=== PATIENT | male | born 1940 | race Caucasian/White ===

== ENCOUNTER → 2018-08-22 | Outpatient (CLI) | payer MEDICARE, OTHER ==
[~2018-08-22] MED LIST: ASPI81CH PO; CEPH500 PO; FINA5 PO; Flomax0.4 MG PO; NEBI5 PO
== END | disposition home or self-care (01) ==
LOC: PLD 12:23 → LAB SHORT 12:23
DX: C44.321 Squamous cell carcinoma of skin of nose (principal)
CPT/HCPCS: 88305

== ENCOUNTER → 2019-08-29 | Outpatient (CLI) | payer MEDICARE, OTHER | END | disposition home or self-care (01) | LOC: PLD 15:23 → LAB SHORT 15:23 | DX: D04.62 Carcinoma in situ of skin of left upper limb, including shoulder (principal) | CPT/HCPCS: 88305 ==

== ENCOUNTER → 2020-06-27 | Outpatient (CLI) | payer MEDICARE, OTHER | LOC: LAB SHORT 11:18 → PLD 11:18 | DX: C44.329 Squamous cell carcinoma of skin of other parts of face (principal); C44.319 Basal cell carcinoma of skin of other parts of face | CPT/HCPCS: 88305 ==

== ENCOUNTER → 2020-07-30 | Outpatient (CLI) | payer MEDICARE, OTHER, BC | END | disposition home or self-care (01) | LOC: LAB SHORT 14:42 → PLD 14:42 | DX: L57.0 Actinic keratosis (principal) | CPT/HCPCS: 88305 ==

== ENCOUNTER 2025-01-17 04:38 | Inpatient (IN) | payer MEDICARE, OTHER ==
[~2025-01-17] VITALS: Ht 185.4 cm; Wt 95.4 kg
[2025-01-17 04:56] LABS: BASOPHILS ABSOLUTE AUTO 0.03 K/mm3 (0.00-0.23); BASOPHILS PERCENT AUTO 0 % (0-2); EOSINOPHILS ABSOLUTE AUTO 0.03 K/mm3 (0.00-0.68); EOSINOPHILS PERCENT AUTO 0 % (0-6); Hematocrit 36.7 % (37.0-53.0); Hemoglobin 11.7 g/dL (13.5-17.5); IMMATURE GRAN ABSOLUTE AUTO 0.05 K/mm3 (0.00-0.10); IMMATURE GRAN PERCENT AUTO 1 % (0-1); LYMPHOCYTES ABSOLUTE AUTO 1.14 K/mm3 (0.84-5.20); LYMPHOCYTES PERCENT AUTO 10 % (21-46); MONOCYTES ABSOLUTE AUTO 1.10 K/mm3 (0.16-1.47); MONOCYTES PERCENT AUTO 10 % (4-13); Mean Corpuscular HGB Conc 31.9 g/dL (31.5-36.5); Mean Corpuscular Volume 101 fL (80-100); NEUTROPHILS ABSOLUTE AUTO 8.68 K/mm3 (1.96-9.15); NEUTROPHILS PERCENT AUTO 79 % (41-73); NRBC ABSOLUTE 0.00 K/mm3 (0.00-0.02); NRBC Auto 0.0 /100 WBC (0.0-0.2); Platelet Count 121 K/mm3 (150-400); RDW Coefficient Variation 14.1 % (11.7-14.2); RDW Standard Deviation 52.6 fL (35.1-46.3)
[2025-01-17 05:15] LABS: Anion Gap 9.0 mmol/L (3-11); Blood Urea Nitrogen 38.0 mg/dL (8-24); CO2, Blood 20.0 mmol/L (21-32); Calcium, Blood 7.7 mg/dL (8.5-10.1); Chloride, Blood 114.0 mmol/L (98-108); Creatinine, Blood 1.82 mg/dL (0.60-1.20); Glucose, Blood 118.0 mg/dL (70-99); Potassium, Blood 4.2 mmol/L (3.5-5.5); Sodium, Blood 139.0 mmol/L (136-145)
[2025-01-17] MEDS ORDERED: Ondansetron HCl 2 MG / ML 2ML Vial IV PRN (06:10)
[2025-01-17] MEDS ORDERED: Polyethylene Glycol 3350 17 gm PO PRN (06:35)
[2025-01-17 08:26] VITALS: BP 107/68
--- NOTE | 2025-01-17 09:07 | NUR ---
ADMISSION: PT ARRIVED TO PCU 18 @0823 VIA GURNEY. PT ALERT AND ORIENTED X3 ON ARRIVAL, EXTREMELY LITTLE TRAVERSE. STRENGTH WEAK, EQUAL BILATERALLY. DENIES NUMBNESS/TINGLING THROUGHOUT. BP STABLE. HR SR 80'S. AFEBRILE. SPO2 >98% ON ROOM AIR. LUNG SOUNDS DIM IN BASES. PULSES PALPABLE THROUGHOUT. ABD SOFT, NON TENDER, BOWEL SOUNDS +. LAST BM 01/16/25 PER PT SON. SON AT BEDSIDE, ABLE TO ASSIST WITH HEALTH HISTORY AND MED REC. PT ADMITTED FOR R. HIP FX, SURG SCHEDULED FOR 1400. NPO AT THIS TIME. PT AND SON ORIENTED TO ROOM AND CALL LIGHT SYSTEM, BED IN LOW, CALL LIGHT IN REACH.
[2025-01-17 11:06] VITALS: BP 93/54
--- NOTE | 2025-01-17 14:10 | NUR ---
UPDATE: SURGEON AT BEDSIDE. CONSENT OBTAINED. VITAL SIGNS REMAIN STABLE. PT NOW SURGICAL STATUS. SON REMAINS AT BEDSIDE.
--- NOTE | 2025-01-17 14:27 | NUR ---
UPDATE: PT TO DAY SURG.
[2025-01-17 14:30] VITALS: BP 117/71
--- NOTE | 2025-01-17 14:39 | NUR ---
History, Chart, Medications and Allergies reviewed before start of procedure. Pre-Op teaching done. Pt verbalizes understanding. Patient confirms NPO status and agrees with scheduled surgery. PLAN TO LEAVE BILATERAL HEARING AIDS IN UNTIL PT GETS BACK TO OR. WILL PLAN TO SEND LABELED SPECIMEN CUP BACK WITH RIGGER THIRD FOR HEARING AIDS.
[2025-01-17] MEDS ORDERED: Tranexamic Acid 100 ML IV SCH (14:50)
[2025-01-17] MEDS ORDERED: CeFAZolin Sodium 2,000 MG in NS 100 ML IV SCH (14:50)
--- NOTE | 2025-01-17 14:55 | NUR ---
UPDATE: PT WILL RETURN TO SURGICAL ROOM 214. SONNADIR UPDATED AND NOTIFIED OF ROOM CHANGE. REPORT GIVEN TO WAGNER LAKHANI.
--- NOTE | 2025-01-17 15:15 | NUR ---
PROCEDURE IS CANCELLED D/T NEEDING UPDATED ECHO. WILL PLAN TO COMPLETE ECHO AND PROCEED WITH SURGERY TOMORROW.
--- NOTE | 2025-01-17 17:11 | NUR ---
ECHO WAS OBTAINED BEDSIDE IN PREOP. UPON COMPLETION, PLAN REMAINS TO PROCEED WITH SURGERY TOMORROW AM. PT TRANSFERRED TO SURGICAL FLOOR ROOM 214. REPORT GIVEN TO JAKUB MARTINEZ RN TO ASSUME CARE OF PT.
[2025-01-17 17:16] VITALS: BP 125/64
--- NOTE | 2025-01-17 17:25 | NUR ---
PATIENT ARRIVES TO ROOM 214 @1720 PATIENT FROM [facility] HE DID NOT HAVE SURGERY THIS EVENING, ECHO WAS DONE IN DAYSURGERY AND PATIENT IS SCHEDULED TO BE ADDED ON TO OR SCHEDULE TOMORROW. PATIENT R LEG IS SWOLLEN AND INTERNALLY ROTATED AND L R ANKLE IS SWOLLEN WITH +2 EDEMA. PEDAL PULSES ARE +2. LUNG SOUNDS ARE DIM. PATIENT HAS HEARING AIDES AND IS [place]. PATIENT FAMILY MEMBER IN ROOM TO ANSWER QUESTIONS. CALL LIGHT IN REACH, PATIENT ABLE TO MAKE NEEDS KNOWN.
[2025-01-17 20:36] VITALS: BP 102/60
[2025-01-18] VITALS (15 sets, daily range): BP systolic 96–214; BP diastolic 51–177
--- NOTE | 2025-01-18 04:00 | NUR ---
SHIFT SUMMARY NO ACUTE CHANGES TONIGHT. PT ABLE TO MAKE NEEDS KNOWN. IS VERY [place]. RIGHT LEG/HIP PAIN MANAGED WITH PO MEDICATION AND REPOSITIONING. ON BED REST R/T FX. USING URINAL WITH ASSISTANCE. IS NPO WITH IVF INFUSING PER ORDER. PRE SURGICAL SCRUB COMPLETE. AWAITING POTENTIAL SURGERY TODAY.
[2025-01-18 05:08] LABS: BASOPHILS ABSOLUTE AUTO 0.03 K/mm3 (0.00-0.23); BASOPHILS PERCENT AUTO 0 % (0-2); EOSINOPHILS ABSOLUTE AUTO 0.14 K/mm3 (0.00-0.68); EOSINOPHILS PERCENT AUTO 2 % (0-6); Hematocrit 33.8 % (37.0-53.0); Hemoglobin 10.8 g/dL (13.5-17.5); IMMATURE GRAN ABSOLUTE AUTO 0.03 K/mm3 (0.00-0.10); IMMATURE GRAN PERCENT AUTO 0 % (0-1); LYMPHOCYTES ABSOLUTE AUTO 1.31 K/mm3 (0.84-5.20); LYMPHOCYTES PERCENT AUTO 18 % (21-46); MONOCYTES ABSOLUTE AUTO 0.89 K/mm3 (0.16-1.47); MONOCYTES PERCENT AUTO 12 % (4-13); Mean Corpuscular HGB Conc 32.0 g/dL (31.5-36.5); Mean Corpuscular Volume 102 fL (80-100); NEUTROPHILS ABSOLUTE AUTO 5.09 K/mm3 (1.96-9.15); NEUTROPHILS PERCENT AUTO 68 % (41-73); NRBC ABSOLUTE 0.00 K/mm3 (0.00-0.02); NRBC Auto 0.0 /100 WBC (0.0-0.2); Platelet Count 129 K/mm3 (150-400); RDW Coefficient Variation 14.5 % (11.7-14.2); RDW Standard Deviation 54.2 fL (35.1-46.3)
[2025-01-18 05:32] LABS: Alanine Aminotransfer (ALT/SGP 16.0 U/L (12-78); Albumin, Blood 2.5 g/dL (3.4-5.0); Albumin/Globulin Ratio 0.7 (0.8-1.8); Anion Gap 8.0 mmol/L (3-11); Aspartate Aminotrans (AST/SGOT 38.0 U/L (12-37); Bilirubin, Total 1.2 mg/dL (0.1-1.0); Blood Urea Nitrogen 47.0 mg/dL (8-24); CO2, Blood 24.0 mmol/L (21-32); Calcium, Blood 8.1 mg/dL (8.5-10.1); Chloride, Blood 111.0 mmol/L (98-108); Creatinine, Blood 2.29 mg/dL (0.60-1.20); Globulin, Blood 3.6 g/dL (2.2-4.0); Glucose, Blood 110.0 mg/dL (70-99); Magnesium, Blood 1.9 mg/dL (1.6-2.4); Potassium, Blood 4.6 mmol/L (3.5-5.5); Sodium, Blood 138.0 mmol/L (136-145); Total Protein, Blood 6.1 g/dL (6.4-8.2)
[2025-01-18] MEDS ORDERED: NS 1,000 ML IV SCH (07:00)
[2025-01-18] MEDS ORDERED: Amiodarone HCl 50 MG / ML 3 ML Amp IV ONE ×2 (15:50→16:17)
[2025-01-18] MEDS ORDERED: Rocuronium Bromide 10 MG/ML 5ML Injection IV ONE (15:54)
--- NOTE | 2025-01-18 16:18 | NUR ---
"Spiritual Care | Rapid Response | Family Support Pt. is being cared for by the medical staff. During transfer to PCU this mapping specialist sought to be available to the Pts. son who was at bedside during the Rapid. Son was unsettled about why plans for the Pt. didn't happen the previous day. Listen with empathy and interest and sought to normalize the Pts. experience. Son verbalized gratitude for the brief visit."
--- NOTE | 2025-01-18 16:39 | NUR ---
PT WAS A RAPID RESPONSE ON SURGICAL FLOOR ROOM 214 WITH SUSTAINED VTACH PT TRANSFERED VIA BED, AMIO BOLUS WAS GIVEN DURING THE RAPID RESPONSE. AN AMIO GTT WAS STARTED SOON AT THE PT ARRIVED TO PCU 10. BP STABLE. PT IS ON 4L NC W/ SP02 >95%. BL ON RA. THE PT'S SON IS AT BEDSIDE AND STATED BEFORE THE RAPID RESPONSE THAT THE PT WAS ON RA. ON TELE THE PT IS CURRENTLY SR W/ COUPLET PVC'S, PVC'S, AND PAC'S 80'S. THE PT DENIES ANY ANGINA OR CHEST PRESSURE. THE PT DID STATE HE HAS HAD INFREQUENT PRESSURE IN HIS CHEST, BUT IT WAS NOT PRESENT DURING THE RAPID RESPONSE ON SURGICAL. DR. MARTEL WAS CONSULTED FOR THE PT. PLAN TO RESUME A REGULAR DIET AT THIS TIME, AND NPO AT 0000 FOR POSSIBLE RIGHT HIP SURGERY WITH DR. SALAZAR. SON REMAINS AT BEDSIDE. SEE NOTES FOR UPDATES.
--- NOTE | 2025-01-18 17:08 | NUR ---
Chano MARTEL SAW THE PT AND PLAN FOR THE PT TO BE NPO AT 0000 FOR ANGIOGRAM. RIGHT HIP SURGERY IS BEING PUSHED AT THIS TIME.
--- NOTE | 2025-01-18 19:35 | NUR ---
ASSUMPTION OF CARE ASSUMED PT'S CARE AT 1900,BEDSIDE REPORT COMPLETED.PT WIDE AWAKE RESTING IN BED,PT'S SON AT BEDSIDE.PLAN OF CARE REVIEWED.AMIODARONE DRIP INFUSING AT 33.3ML/HR.PT DENIES PAIN,DENIES SOB.PT PLACED ON BEDPAN PER PT'S REQUEST.PT HAD A LIQUID BOWEL MOVEMENT AND VOIDED IN URINAL TOO.PT DENIES FURTHER NEEDS.CALL LIGHT AND PT'S ITEMS WITHIN REACH.BILATERAL HEARING AIDES IN PLACE.MONITORING ONGOING PER CAREPLAN.
[2025-01-19] VITALS (34 sets, daily range): BP systolic 87–138; BP diastolic 49–109
[2025-01-19 04:12] LABS: BASOPHILS ABSOLUTE AUTO 0.02 K/mm3 (0.00-0.23); BASOPHILS PERCENT AUTO 0 % (0-2); EOSINOPHILS ABSOLUTE AUTO 0.14 K/mm3 (0.00-0.68); EOSINOPHILS PERCENT AUTO 2 % (0-6); Hematocrit 31.8 % (37.0-53.0); Hemoglobin 10.1 g/dL (13.5-17.5); IMMATURE GRAN ABSOLUTE AUTO 0.02 K/mm3 (0.00-0.10); IMMATURE GRAN PERCENT AUTO 0 % (0-1); LYMPHOCYTES ABSOLUTE AUTO 1.09 K/mm3 (0.84-5.20); LYMPHOCYTES PERCENT AUTO 15 % (21-46); MONOCYTES ABSOLUTE AUTO 0.73 K/mm3 (0.16-1.47); MONOCYTES PERCENT AUTO 10 % (4-13); Mean Corpuscular HGB Conc 31.8 g/dL (31.5-36.5); Mean Corpuscular Volume 101 fL (80-100); NEUTROPHILS ABSOLUTE AUTO 5.24 K/mm3 (1.96-9.15); NEUTROPHILS PERCENT AUTO 72 % (41-73); NRBC ABSOLUTE 0.00 K/mm3 (0.00-0.02); NRBC Auto 0.0 /100 WBC (0.0-0.2); Platelet Count 148 K/mm3 (150-400); RDW Coefficient Variation 14.2 % (11.7-14.2); RDW Standard Deviation 52.5 fL (35.1-46.3)
[2025-01-19 04:34] LABS: Alanine Aminotransfer (ALT/SGP 16.0 U/L (12-78); Albumin, Blood 2.4 g/dL (3.4-5.0); Albumin/Globulin Ratio 0.7 (0.8-1.8); Anion Gap 8.0 mmol/L (3-11); Aspartate Aminotrans (AST/SGOT 31.0 U/L (12-37); Bilirubin, Total 1.0 mg/dL (0.1-1.0); Blood Urea Nitrogen 45.0 mg/dL (8-24); CO2, Blood 25.0 mmol/L (21-32); Calcium, Blood 7.7 mg/dL (8.5-10.1); Chloride, Blood 111.0 mmol/L (98-108); Creatinine, Blood 2.21 mg/dL (0.60-1.20); Globulin, Blood 3.6 g/dL (2.2-4.0); Glucose, Blood 115.0 mg/dL (70-99); Potassium, Blood 4.5 mmol/L (3.5-5.5); Sodium, Blood 139.0 mmol/L (136-145); Total Protein, Blood 6.0 g/dL (6.4-8.2)
--- NOTE | 2025-01-19 06:36 | NUR ---
PT MONITORED DURING THE SHIFT.PT HAS BEEN USING THE CALL LIGHT APPROPRIATELY.ON AMIODARONE DRIP AT 16.7ML/HR,HR HAS BEEN IN THE 70'S-80'S,BP STABLE.PT COMPLAINED OF RIGHT HIP PAIN WITH MOVEMENT,DECLINED NEED FOR PRN PAIN MED.NPO SINCE MIDNIGHT FOR POSSIBLE SURGERY TODAY.AWAKE AT THIS TIME,DENIES PAIN,DENIES NEEDS.CALL LIGHT AND PT'S ITEMS WITHIN REACH.MONITORING ONGOING PER CAREPLAN.
[2025-01-19] MEDS ORDERED: Verapamil HCL 2.5 MG/ML 2ML Injection ONE (08:21)
[2025-01-19] MEDS ORDERED: Heparin Sodium 1000 Units/ML 10ML MDV ONE (08:22)
[2025-01-19] MEDS ORDERED: Nitroglycerin 2 MG/20 ML BTL ONE (08:22)
[2025-01-19] MEDS ORDERED: NS 1,000 ML IV ONE ×2 (08:22→08:24)
[2025-01-19] MEDS ORDERED: NS 250 ML IV ONE (08:22)
[2025-01-19] MEDS ORDERED: NiCARdipine HCL 1,000 MCG/5 ML SYR ONE (08:23)
[2025-01-19] MEDS ORDERED: FentaNYL Citrate 50 MCG/ML 2 ML Injection ONE ×3 (08:24→17:25)
[2025-01-19] MEDS ORDERED: Midazolam HCl 1MG / ML 2ML Vial ONE (08:24)
[2025-01-19] MEDS ORDERED: NS 1,000 ML IV SCH (09:50)
[2025-01-19] MEDS ORDERED: Prochlorperazine Edisylate 10 mg Vial IV PRN (14:55)
[2025-01-19] MEDS ORDERED: FentaNYL Citrate 50 MCG/ML 2 ML Injection IV PRN (15:00)
[2025-01-19] MEDS ORDERED: HYDROmorphone HCl/Pf 1MG SYR IV PRN (15:00)
[2025-01-19] MEDS ORDERED: Phenylephrine HCl 100 MCG/ML-NS 10MLSYR (1MG/10ML) ONE ×2 (15:17→16:23)
[2025-01-19] MEDS ORDERED: Artificial Tear Opth Oint 3.5 GM ONE (15:24)
[2025-01-19] MEDS ORDERED: Ondansetron HCl 2 MG / ML 2ML Vial ONE (15:36)
[2025-01-19] MEDS ORDERED: Dexamethasone Sod Phos 10 MG/ML 1ML VIAL ONE (15:36)
[2025-01-19] MEDS ORDERED: Bupivacaine 0.5% HCl 5 MG/ML 30MLVIAL ONE (15:37)
--- NOTE | 2025-01-19 18:38 | NUR ---
SHIFT NOTE: PT A/OX4 ABLE TO MAKE HIS NEEDS KNOWN. HE HAS REMAINED IN NSR WITH PVC WITH NO ACUTE EVENTS THIS SHIFT. HE WENT TO LOADER TECHNICIAN THIS AM AND HAD HIS R. HIP SURGERY THIS AFTERNOON. PT BACK TO ROOM APPOX 1800. HE RETURNS ON 2L NC TO MAINTAIN SPO2>90. HIS SURGICAL INCISIONS ARE COVERED WITH GAUZE AND TEGADERM. HIS RADIAL SITE IS RECOVERED AND COVERED WITH TEGADERM WITH BRUISING AROUND THE SITE. HE HAS SCATTERED BRUSING AND SCABS T/O. CALL LIGHT IN REACH, FAMILY UPDATED ON PLAN OF CARE. CARE CONTINUES
[2025-01-20 00:40] VITALS: BP 118/78
--- NOTE | 2025-01-20 01:44 | NUR ---
RETENTION PT HAD NOT VOIDED POST OP, BLADDER SCAN REVELED 1044 MLS IN BLADDER WITH SCAN. PT WAS ABLE TO SPONTANEOUSLY VOID AFTER SCAN AND VOIDED 250 MLS. DISCUSSED WITH RESTORATION TECHNICIAN SARAH AND NOTIFIED HER OF BLADDER SCAN AMOUNT AND POST VOID SCAN OF 644. SHE STATES TO STRAIGHT CATH PER PROTOCOL, SINCE PT WAS STILL RETAINING A LARGE AMOUNT. PT STRAIGHT CATH PER PROTOCOL.PT AGREED TO STRAIGHT CATH PROCEDURE. PT STRAIGHT CATH AND 300 MLS OF URINE WAS OBTAINED.
--- NOTE | 2025-01-20 04:12 | NUR ---
SHIFT SUMMARY PT S/P RIGHT HIP RODDING/NAILING. PT DROWSY POST OP, PT WAS VERY SLEEPY AT THE START OF THE SHIFT. DID OPEN HIS EYES TO HIS NAME, AND WOKE UP ENOUGH TO ADJUST HIS COVERS. HS MEDS WERE HELD DUE TO SOMNOLENCE. PT WAS AWAKE AND ALERT AROUND 2300. POST OP VITALS STABLE. UNABLE TO WEAN FROM O2 POST OP, PT DESATS ON RA IN THE 80'S, 4L O2 IN PLACE AND PT MAINTAINS SATS WNL. RESP E/U. PT BLADDER SCAN AROUND 0000 PT STILL HAD NOT VOIDED POST OP. PT WAS ABLE TO VOID SOME, DID VOID SOME POST OP, BUT STILL HAD QUITE A BIT OF RETENTION OVER 600 MLS POST VOID. PT STRAIGHT CATH THIS SHIFT. SURIGICAL SITE WNL. PT DENIES PAIN. NO N/V POST OP. PLAN OF CARE UNCHANGED. BED IN LOWEST POSITION, CALL LIGHT WITHIN REACH.
[2025-01-20 04:34] LABS: Hematocrit 31.6 % (37.0-53.0); Hemoglobin 10.2 g/dL (13.5-17.5); Mean Corpuscular HGB Conc 32.3 g/dL (31.5-36.5); Mean Corpuscular Volume 102 fL (80-100); NRBC ABSOLUTE 0.00 K/mm3 (0.00-0.02); NRBC Auto 0.0 /100 WBC (0.0-0.2); Platelet Count 174 K/mm3 (150-400); RDW Coefficient Variation 14.0 % (11.7-14.2); RDW Standard Deviation 52.5 fL (35.1-46.3)
[2025-01-20 04:42] VITALS: BP 104/76
[2025-01-20 04:54] LABS: Anion Gap 7.0 mmol/L (3-11); Blood Urea Nitrogen 49.0 mg/dL (8-24); CO2, Blood 25.0 mmol/L (21-32); Calcium, Blood 7.8 mg/dL (8.5-10.1); Chloride, Blood 111.0 mmol/L (98-108); Creatinine, Blood 2.17 mg/dL (0.60-1.20); Glucose, Blood 129.0 mg/dL (70-99); Magnesium, Blood 2.1 mg/dL (1.6-2.4); Phosphorus, Blood 4.5 mg/dL (2.5-4.9); Potassium, Blood 5.1 mmol/L (3.5-5.5); Sodium, Blood 138.0 mmol/L (136-145)
[2025-01-20 07:38] VITALS: BP 105/55
[2025-01-20 13:00] LABS: Source, Urine Foley catheter
[2025-01-20 13:16] LABS: Bilirubin, Urine Neg (Neg); Glucose Qualitative, Urine Neg (Neg); Ketones, Urine Neg (Neg); Leukocyte Esterase, Urine 3+ (Neg); Protein, Urine 3+ (Neg); Specific Gravity, Urine 1.015 (1.003-1.022); Urobilinogen, Urine NORM (Normal)
[2025-01-20 13:30] LABS: Color, Urine Pale Yellow (P-Yellow)
[2025-01-20 13:31] LABS: Red Blood Cells, Urine TNTC /hpf (0-2); White Blood Cells, Urine TNTC /hpf (0-5)
--- NOTE | 2025-01-20 14:41 | NUR ---
SHIFT NOTE: PT ALERT AND ANSWERS QUESTIONS APPROPRIATLEY WITH INTERMITTENT CONFUSION AND ONE EPISODE OF VISUAL HALLUCINATIONS. HE IS ON RA WITH SPO2>90. HE IS IN NSR WITH PACS AND PVS BUT NO ACUTE CARDIAC EVENTS. THE CADD MANAGER STARTED HIM ON ORAL AMIO THIS AM-SEE EMAR. HE HAS BEEN UNABLE TO VOID. AFTER A SECOND STRAIGHT CATH, A EMERSON WAS PLACED DRAINING TO GRAVITY. UA SENT TO LAB. HIS RIGHT RADIAL SITE IS UNCHANGED. HIS RIGHT HIP BANDAGES ARE C/D/I. HE IS TAKING MEDS WHOLE IN APPLESAUCE. CARE CONTINUES
[2025-01-20] MEDS ORDERED: NS 250 ML IV PRN (15:45)
[2025-01-20] MEDS ORDERED: CefTRIAXone Sodium 1,000 MG in NS 100 ML IV SCH (16:00)
[2025-01-20 17:28] VITALS: BP 95/61
--- NOTE | 2025-01-20 18:40 | NUR ---
UPDATE: PT BECAME HYPOTENSIVE BEFORE TX TO SURGICAL FLOOR. MD UPDATED, PT TO REMAIN PCU STATUS.
[2025-01-20 19:45] VITALS: BP 101/60
[2025-01-20] MEDS ORDERED: Heparin Sodium,Porcine 5,000 UNIT/0.5 ML SDV SC SCH (21:00)
[2025-01-21] VITALS (11 sets, daily range): BP systolic 80–119; BP diastolic 43–75
--- NOTE | 2025-01-21 04:38 | NUR ---
CARE TRANSITIONS NURSE SUMMARY NO ACUTE CHANGES THIS SHIFT. PT AAOX3 WITH SOME FORGETFULNESS. VERY [place]. DENIES PAIN AT REST AND ONLY HAS DISCOMFORT WITH REPOSITIONING. DENIES NEEDING PAIN MEDICATIONS. SURGICAL DRESSINGS TO R HIP ARE C/D/I AND SKIN SURROUNDING INCISIONS WNL. PT HAS GOOD SENSATION TO EXTREMETIES AND ABLE TO WIGGLE TOES. EMERSON CATHETER CONTINUES TO DRAIN YELLOW CLOUDY URINE, EMPTIED 700 ML AT END OF SHIFT. VITALS HAVE BEEN STABLE WITH BP STILL ON THE SOFT SIDE BUT MAINTAINING A GOOD MAP. WCTM.
[2025-01-21 04:58] LABS: Hematocrit 29.6 % (37.0-53.0); Hemoglobin 9.7 g/dL (13.5-17.5); Mean Corpuscular HGB Conc 32.8 g/dL (31.5-36.5); Mean Corpuscular Volume 100 fL (80-100); NRBC ABSOLUTE 0.00 K/mm3 (0.00-0.02); NRBC Auto 0.0 /100 WBC (0.0-0.2); Platelet Count 202 K/mm3 (150-400); RDW Coefficient Variation 13.9 % (11.7-14.2); RDW Standard Deviation 51.2 fL (35.1-46.3)
[2025-01-21 05:38] LABS: Anion Gap 9.0 mmol/L (3-11); Blood Urea Nitrogen 61.0 mg/dL (8-24); CO2, Blood 25.0 mmol/L (21-32); Calcium, Blood 7.7 mg/dL (8.5-10.1); Chloride, Blood 110.0 mmol/L (98-108); Creatinine, Blood 2.49 mg/dL (0.60-1.20); Glucose, Blood 106.0 mg/dL (70-99); Magnesium, Blood 2.0 mg/dL (1.6-2.4); Potassium, Blood 4.6 mmol/L (3.5-5.5); Sodium, Blood 139.0 mmol/L (136-145)
--- NOTE | 2025-01-21 09:35 | NUR ---
HYPOTENSION AT 0825 PT WAS SITTING UP IN BED, FINISHED EATING BREAKFAST AND C/O BEING "FAINTLY DIZZY". DR LOPEZ WAS AT BEDSIDE FOR THIS, BP WAS RECHECKED AND WAS DOWN TO 87/43. DR. LOPEZ ORDERED TO HOLD LASIX & METOPROLOL. BP RECHECKED AT 0900, 83/70.
--- NOTE | 2025-01-21 17:35 | NUR ---
SHIFT SUMMARY LASIX & METALEXISLOL HELD THIS AM PER DR. LOPEZ DUE TO HYPOTENSION WITH SBP IN THE 80S. BP IMPROVED TO 119/75 THIS AFTERNOON, PT WAS ABLE TO GET UP TO THE SIDE OF THE BED TO DANGLE FOR APPROX 10 MINUTES THIS AFTERNOON. WHEN DOING THIS HIS BP DECREASED BACK DOWN TO 94/51 WHILE SITTING ON SIDE OF BED. PT REPORTED BEING "A LITTLE DIZZY." PT BACK TO BED AFTERTHIS. PT ENCOURAGED TO GET UP TO SIDE OF BED FOR MEALS. PT GIVEN BEDBATH TODAY. CATH CARE COMPLETED. REPOSITIONED Q2H. NO OTHER ACUTE CHANGES IN ASSESSMENT AT THIS TIME. VS REVIEWED. CALL LIGHT IN REACH.
[2025-01-22 00:09] VITALS: BP 116/87
[2025-01-22 04:41] VITALS: BP 119/66
[2025-01-22 05:44] LABS: Hematocrit 27.9 % (37.0-53.0); Hemoglobin 9.1 g/dL (13.5-17.5); Mean Corpuscular HGB Conc 32.6 g/dL (31.5-36.5); Mean Corpuscular Volume 101 fL (80-100); NRBC ABSOLUTE 0.00 K/mm3 (0.00-0.02); NRBC Auto 0.0 /100 WBC (0.0-0.2); Platelet Count 194 K/mm3 (150-400); RDW Coefficient Variation 14.0 % (11.7-14.2); RDW Standard Deviation 51.8 fL (35.1-46.3)
[2025-01-22 06:02] LABS: Anion Gap 8.0 mmol/L (3-11); Blood Urea Nitrogen 57.0 mg/dL (8-24); CO2, Blood 25.0 mmol/L (21-32); Calcium, Blood 7.4 mg/dL (8.5-10.1); Chloride, Blood 110.0 mmol/L (98-108); Creatinine, Blood 2.36 mg/dL (0.60-1.20); Glucose, Blood 100.0 mg/dL (70-99); Magnesium, Blood 1.8 mg/dL (1.6-2.4); Potassium, Blood 4.4 mmol/L (3.5-5.5); Sodium, Blood 139.0 mmol/L (136-145)
--- NOTE | 2025-01-22 06:03 | NUR ---
SHIFT SUMMARY PT IS LYING IN BED WITH PULSE OX MONITOR ON. PT IS EXTREMELY HARD OF HEARING, BUT CAN EXPRESS CONCERNS WITHOUT ISSUE. PT IS PLEASANT AND COOPERATIVE WITH CARE. 2200, PT SLEEPING. SLIGHTYLY SNORING. DURING MIDNIGHT ROUNDING AND VITALS, PT HAD GOWN, NC, AND PULSEOX PULLED OFF. THIS RN GOT EVERYTHING PUT BACK ON, PT TUCKED IN AND SETTLED BACK INTO BED COMFORTABLY. CONTINUING TO MONITOR. APPROX 0145, PT CALLED OUT CONFUSED AND COMPLAINING OF BEING UNCOMFORTABLE. PT REPOSITIONED AND IS NOW RESTING COMFORTABLY. PT CONTINUES TO DENY PAIN. AFTER 0400 VITALS, PT NEEDED BRIEF CHANGE. PT EXPRESSED GREAT PAIN. PT MEDICATED PER EMAR, AND IS NOW SLEEPING SOUNDLY.
[2025-01-22 07:29] VITALS: BP 134/71
[2025-01-22 11:58] VITALS: BP 107/75
[2025-01-22] MEDS ORDERED: Amiodarone HCl200 MG PO (13:26)
[2025-01-22] MEDS ORDERED: Aspir 8181 MG PO (13:27)
[2025-01-22] MEDS ORDERED: Cefpodoxime Pr100 MG PO (13:28)
[2025-01-22] MEDS ORDERED: ATOR20 PO (13:28)
[2025-01-22] MEDS ORDERED: FURO20 PO (13:29)
[2025-01-22] MEDS ORDERED: METO25ER PO (13:29)
[2025-01-22] MEDS ORDERED: DOCU100 PO (13:29)
[2025-01-22] MEDS ORDERED: NITR.4SL SL (13:30)
[2025-01-22] MEDS ORDERED: OXYC5 PO (13:30)
[2025-01-22] MEDS ORDERED: MIRALAX17 GM PO (13:30)
[2025-01-22] MEDS ORDERED: JARDIANCE10 MG PO (13:38)
--- NOTE | 2025-01-22 14:14 | NUR ---
REPORT CALLED TO [facility]. AWAITING TRANSPORT.
--- NOTE | 2025-01-22 14:47 | NUR ---
DISCHCARGE NOTE: THIS RN WENT OVER DISCHARGE PAPERWORK WITH SON AT BEDSIDE ALONG WITH PT. SON TOOK ALL PERSONAL BELONGINGS WITH HIM. PATIENT WAS TRANSFFERED TO [facility] VIA SLIDE SHEET.
== END 2025-01-22 14:41 | DRG 480 ==
LOC: ER 04:38 → MEDS 06:14 → SURS 06:14 → PCU 06:14 → SURS 14:58 → PCU 01-18 16:00
PROVIDERS: Emergency Medicine; Internal Medicine Cardiovascular Disease; Orthopaedic Surgery; Registered Nurse; Student in an Organized Health Care Education/Training Program; ADMIT Student in an Organized Health Care Education/Training Program
PROC: 0QS636Z Reposition Right Upper Femur with Intramedullary Internal Fixation Device, Percutaneous Approach (ICD-10-PCS; 2025-01-19)
PROC: B2111ZZ Fluoroscopy of Multiple Coronary Arteries using Low Osmolar Contrast (ICD-10-PCS; 2025-01-19)
PROC: 4A023N7 Measurement of Cardiac Sampling and Pressure, Left Heart, Percutaneous Approach (ICD-10-PCS; principal; 2025-01-19 15:00)
DX: S72.141A Displaced intertrochanteric fracture of right femur, initial encounter for closed fracture (principal); I50.23 Acute on chronic systolic (congestive) heart failure; I47.29 Other ventricular tachycardia; N18.4 Chronic kidney disease, stage 4 (severe); N17.9 Acute kidney failure, unspecified; Z66 Do not resuscitate; I25.10 Atherosclerotic heart disease of native coronary artery without angina pectoris; D63.1 Anemia in chronic kidney disease; D69.6 Thrombocytopenia, unspecified; N13.9 Obstructive and reflux uropathy, unspecified; Z98.890 Other specified postprocedural states; W18.30XA Fall on same level, unspecified, initial encounter; Y92.009 Unspecified place in unspecified non-institutional (private) residence as the place of occurrence of the external cause
CPT/HCPCS: 36415; 51701; 71045; 73502; 76937; 80048; 80053; 81001; 82947; 83735; 83880; 84100; 84443; 84484; 85025; 85027; 87077; 87086; 87186; 92610; 93005; 93010; 93458; 94762; 97110; 97162; 97530; 99285-25; A9270; C1713; C1769; C1894; C8929; J0282; J0690; J0696; J1100; J1644; J1938; J2250; J2371; J2405; J2704; J3010; J7030; J7050; J7060; J7120; Q9957; Q9967